=== PATIENT | male | born 1990 | race African-American/Black ===

== ENCOUNTER 2019-10-17 07:27 | Emergency (ER) | payer OTHER, MEDICAID ==
[~2019-10-17] VITALS: Ht 182.9 cm; Wt 111.4 kg
[2019-10-17 07:35] VITALS: BP 127/85
[2019-10-17 09:02] LABS: BILIRUBIN,URINE NEGATIVE (NEG); CLARITY,URINE CLEAR; COLOR,URINE YELLOW; NITRITE,URINE NEGATIVE (NEG); PROTEIN,URINE NEGATIVE (NEG-TRACE); UROBILINOGEN,URINE 0.2 mg/dL (0.2 mg/dL)
[2019-10-17 09:09] LABS: RBC,URINE 0 /HPF (0-2); WBC,URINE 20-40 /HPF (0-4)
[2019-10-17 09:10] LABS: BACTERIA,URINE FEW /HPF (0-FEW)
[2019-10-17] MEDS ORDERED: AZITHROMYCIN 250 MG TABLET. PO ONE (09:30)
[2019-10-17] MEDS ORDERED: cefTRIAXone IM 250 MG VIAL IM ONE (09:30)
--- NOTE | 2019-10-17 09:42 | PHYS DOC ---
Past Medical History Past Medical History: Asthma, Bronchitis Additional Past Medical Histor: Sickle cell trait Past Surgical History: No Surgical History Smoking Status: Current Every Day Smoker Alcohol Use: Rarely Drug Use: Marijuana General Adult EDM: Chief Complaint: GROIN PAIN HPI: HPI: 28-year-old male who denies any significant past medical history presents the ED with complaints of a swollen penis for the past 2 to 3 days, " I think it is my swole veins messing up." Last unprotected intercourse was 1 week ago. Reports associated white urethral discharge, dysuria and increased urinary frequency for the past 2 days. No history of prior STI or blood-borne infection. No h/o prior similar sxs. Review of systems: Denies associated fever, chills, cough, sore throat, chest pain, dyspnea, nausea, vomiting, diarrhea, flank pain, hematuria, myalgias, genital rash or redness, abdominal or back pain. Current Medications: Current Medications Medications (Trade) Dose Ordered Sig/Kori Start Time Stop Time Status Last Admin Dose Admin Azithromycin (Zithromax) 1,000 mg 1X ONCE 10/17/19 09:30 8 09:31 DC Ceftriaxone Sodium (Rocephin Im) 250 mg 1X ONCE 10/17/19 09:30 8 09:31 DC Allergies: Allergies: Allergies Coded Allergies Type Severity Reaction Last Updated Verified No Known Drug Allergies 05/30/15 No Physical Exam: PE: Constitutional: Well developed, well nourished, no acute distress, non-toxic appearance. [] HENT: Normocephalic, atraumatic, bilateral external ears normal, oropharynx moist, nose normal. [] Eyes: PERRLA, EOMI, conjunctiva normal, no discharge. [] Neck: Normal range of motion, no tenderness, supple, no stridor. [] Cardiovascular:Heart rate regular rhythm, no murmur [] Lungs & Thorax: Bilateral breath sounds clear to auscultation [] Abdomen: Bowel sounds normal, soft, no tenderness, no masses, no pulsatile masses. [] Skin: Warm, dry, no erythema, no rash. [] Back: No tenderness, no CVA tenderness. [] Extremities: No tenderness, no cyanosis, no clubbing, ROM intact, no edema. [] Neurologic: Alert and oriented X 3, normal motor function, normal sensory function, no focal deficits noted. [] Psychologic: Affect normal, judgement normal, mood normal. [] PELVIC: Chaperoned by RN, yellow urethral discharge expressed, no testicular swelling or tenderness, no rash, circumcised, no ulcers, swelling over distal shaft of penis not involving the glans, no erythema or increased warmth Current Patient Data: Labs: Laboratory Tests Test 10/17/19 08:25 Urine Collection Type Unknown Urine Color Yellow Urine Clarity Clear Urine pH 6.0 (<5.0-8.0) Urine Specific [employer] <=1.005 (1.000-1.030) Urine Protein Negative mg/dL (NEG-TRACE) Urine Glucose (UA) Negative mg/dL (NEG) Urine Ketones (Stick) Negative mg/dL (NEG) Urine Blood Trace (NEG) Urine Nitrite Negative (NEG) Urine Bilirubin Negative (NEG) Urine Urobilinogen Dipstick 0.2 mg/dL (0.2 mg/dL) Urine Leukocyte Esterase Large (NEG) Urine RBC 0 /HPF (0-2) Urine WBC 20-40 /HPF (0-4) Urine Bacteria Few /HPF (0-FEW) Vital Signs: Vital Signs Date Time Temp Pulse Resp B/P (MAP) Pulse Ox O2 Delivery O2 Flow Rate FiO2 10/17/19 07:35 97.4 62 14 127/85 (99) 98 Room Air 97.4 EKG: EKG: [] Radiology/Procedures: Radiology/Procedures: IMAGING REPORT Signed PATIENT: VALARIE PAT ACCOUNT: [id number] : 1990 LOCATION: ER AGE: 28 SEX: M EXAM STATUS: REG ER ORD. PHYSICIAN: NANCY ROMERO DO REASON: genital swelling PROCEDURE: TESTICULAR/SCROTUM EXAM: SCROTAL SONOGRAM WITH DOPPLER. HISTORY: Scrotal/penile swelling. COMPARISON: None. FINDINGS: Grayscale and Doppler analysis of the scrotum and contents was performed. The right testicle measures 4.7 x 2.5 x 2.5 cm. The parenchyma is homogeneous without focal lesions. The epididymis appears normal. Internal flow is normal. There is a small hydrocele. The left testicle measures 4.5 x 3.0 x 2.7 cm. The parenchyma is homogeneous without focal lesions. The epididymis appears normal. Internal flow is normal. There is a small hydrocele. At the penile site of concern, sonographic images reveal skin thickening. There is no underlying collection or other sonographic abnormality. IMPRESSION: 1. The penile site of swelling reveals only mild skin thickening sonographically. No clear underlying abnormality is appreciated. Ongoing clinical follow-up/management is recommended. Electronically signed by: Jacinda Brian MD (10/17/2019 10:42 AM) [id number] DICTATED and SIGNED BY: SHERRI BRIAN MD DATE: 10/17/19 104 Course & Med Decision Making: Course & Med Decision Making Pertinent Labs and Imaging studies reviewed. (See chart for details) I had seen/evaluated patient and performed a physical exam. Informed pt I was concerned for sexually transmitted disease/complicated UTI and was ruling out any scrotal abscess. Patient was made aware he would be treated for chlamydia and gonorrhea and that we were awaiting ultrasound, UA results and trichomonas results to determine further abx and outpt followup. RN went to give patient his medications and obtain a wet prep for trichomonas and patient was nowhere to be found. Patient did not notify any medical staff that he was leaving. I attempted twice to reach pt on [phone], unsuccessful, number has been disconnected. This patient has left emergency department waiting room with no communication to myself, nursing or administrative staff. There was no opportunity to discuss the patient's decision to leave, provide medical advice or discuss alternatives to leaving. The staff has made efforts to locate the patient without success. Patient has medical decision-making capacity and was not medically cleared from life or limb threatening conditions. Dragon Disclaimer: Dragon Disclaimer: This electronic medical record was generated, in whole or in part, using a voice recognition dictation system. Departure Departure Impression: Primary Impression: Complicated urinary tract infection Additional Impression: Urethral discharge in male Disposition: 07 AGAINST MEDICAL ADVICE (Pt eloped from ED without notifying medical staff) Referrals: NO PCP (PCP) Justicifation of Admission Dx: Justifications for Admission: Justification of Admission Dx: N/A NANCY ROMERO DO Oct 17, 2019 09:42
--- NOTE | 2019-10-17 10:45 | RAD ---
EXAM: SCROTAL SONOGRAM WITH DOPPLER. HISTORY: Scrotal/penile swelling. COMPARISON: None. FINDINGS: Grayscale and Doppler analysis of the scrotum and contents was performed. The right testicle measures 4.7 x 2.5 x 2.5 cm. The parenchyma is homogeneous without focal lesions. The epididymis appears normal. Internal flow is normal. There is a small hydrocele. The left testicle measures 4.5 x 3.0 x 2.7 cm. The parenchyma is homogeneous without focal lesions. The epididymis appears normal. Internal flow is normal. There is a small hydrocele. At the penile site of concern, sonographic images reveal skin thickening. There is no underlying collection or other sonographic abnormality. IMPRESSION: 1. The penile site of swelling reveals only mild skin thickening sonographically. No clear underlying abnormality is appreciated. Ongoing clinical follow-up/management is recommended. Electronically signed by: Jacinda Brian MD (10/17/2019 10:42 AM) [id number]
== END 2019-10-17 09:25 | disposition left against medical advice (07) ==
LOC: ER 07:27
DX: N39.0 Urinary tract infection, site not specified (principal); R36.9 Urethral discharge, unspecified; R30.0 Dysuria; R60.0 Localized edema; J45.909 Unspecified asthma, uncomplicated; F17.200 Nicotine dependence, unspecified, uncomplicated; F12.90 Cannabis use, unspecified, uncomplicated
CPT/HCPCS: 76870; 81001; 87086; 87491; 87591; 99284

== ENCOUNTER 2020-11-07 19:07 | Emergency (ER) | payer OTHER, MEDICAID ==
[~2020-11-07] VITALS: Ht 185.4 cm; Wt 113.6 kg
[2020-11-07] MEDS ORDERED: IV NORMAL SALINE 1000ML BAG 1,000 ML IV ONE (20:00)
[2020-11-07 20:07] LABS: BASO % 0 % (0-3); EOS # 0.1 x10^3/uL (0.0-0.7); EOS % 2 % (0-3); HEMATOCRIT 45.6 % (39.0-53.0); HEMOGLOBIN 16.1 g/dL (13.0-17.5); LYMPH # 1.7 x10^3/uL (1.0-4.8); LYMPH % 44 % (24-48); MEAN CORPUSCULAR HEMOGLOBIN 28 pg (25-35); MEAN CORPUSCULAR HGB CONC 35 g/dL (31-37); MEAN CORPUSCULAR VOLUME 80 fL (79-100); MONO # 0.7 x10^3/uL (0.0-1.1); MONO % 17 % (0-9); NEUT # 1.5 x10^3/uL (1.8-7.7); NEUT % 37 % (31-73); PLATELET COUNT 177 x10^3/uL (140-400); RED BLOOD COUNT 5.71 x10^6/uL (4.30-5.70)
[2020-11-07 20:14] VITALS: BP 127/78
[2020-11-07 20:15] LABS: CALCIUM 9.3 mg/dL (8.5-10.1); CREATININE 1.4 mg/dL (0.7-1.3); POTASSIUM 3.5 mmol/L (3.5-5.1)
--- NOTE | 2020-11-07 20:15 | PHYS DOC ---
Past Medical History Past Medical History: Asthma, Bronchitis Additional Past Medical Histor: Sickle cell trait Past Surgical History: No Surgical History Smoking Status: Current Every Day Smoker Alcohol Use: Occasionally Drug Use: Marijuana General Adult EDM: Chief Complaint: CHEST PAIN HPI: HPI: 29-year-old male presents to the emergency department with various complaints including chest pain, abdominal pain, body aches, cough, shortness of breath and fatigue for the last 3 days. He reports that his symptoms are present for approximately 1 month but worse over the last 3 days. He denies any palliative or provoking factors to his symptoms which he states are intermittent. The patient denies nausea, vomiting, fever, chills, urinary symptoms, recent trauma, or any other complaints. Review of Systems: Review of Systems: ROS is otherwise negative except for what was mentioned in HPI Heart Score: C/O Chest Pain: Yes HEART Score for Chest Pain: HEART Score for Chest Pain Response (Comments) Value History Slighlty/Non-Suspicious 0 ECG Normal 0 Age < 45 0 Risk Factors No Risk Factors 0 Troponin < Normal Limit 0 Total 0 Current Medications: Current Medications Medications (Trade) Dose Ordered Sig/Kori Start Time Stop Time Status Last Admin Dose Admin Ketorolac Tromethamine (Toradol 15mg Vial) 15 mg 1X ONCE 11/07/20 20:30 11/07/20 20:31 11/07/20 20:12 15 MG Sodium Chloride 1,000 ml @ 1,000 mls/hr 1X ONCE 11/07/20 20:00 11/07/20 20:59 11/07/20 20:12 1,000 MLS/HR Allergies: Allergies: Allergies Coded Allergies Type Severity Reaction Last Updated Verified No Known Drug Allergies 05/30/15 No Physical Exam: PE: Constitutional: No acute distress, non-toxic appearance. HENT: Atraumatic, bilateral external ears normal, nose normal. Eyes: PERRLA, EOMI, conjunctiva normal, no discharge. Neck: Normal range of motion, supple, no stridor. Cardiovascular: Heart rate regular rhythm. 2+ radial pulses Lungs & Thorax: No respiratory distress, symmetrical expansion. Bilateral breath sounds clear to auscultation Abdomen: Soft, no tenderness Skin: Warm, dry. Extremities: No tenderness, no cyanosis, ROM intact, no edema. Neurologic: Alert and oriented X 3, normal motor function, normal sensory function, no focal deficits noted. Non ataxic gait. GCS 15. Psychologic: Affect normal, judgment normal, mood normal. Current Patient Data: Labs: Laboratory Tests Test 11/07/20 19:24 White Blood Count 4.0 x10^3/uL (4.0-11.0) Red Blood Count 5.71 x10^6/uL (4.30-5.70) Hemoglobin 16.1 g/dL (13.0-17.5) Hematocrit 45.6 % (39.0-53.0) Mean Corpuscular Volume 80 fL (79-100) Mean Corpuscular Hemoglobin 28 pg (25-35) Mean Corpuscular Hemoglobin Concent 35 g/dL (31-37) Red Cell Distribution Width 14.0 % (11.5-14.5) Platelet Count 177 x10^3/uL (140-400) Neutrophils (%) (Auto) 37 % (31-73) Lymphocytes (%) (Auto) 44 % (24-48) Monocytes (%) (Auto) 17 % (0-9) Eosinophils (%) (Auto) 2 % (0-3) Basophils (%) (Auto) 0 % (0-3) Neutrophils # (Auto) 1.5 x10^3/uL (1.8-7.7) Lymphocytes # (Auto) 1.7 x10^3/uL (1.0-4.8) Monocytes # (Auto) 0.7 x10^3/uL (0.0-1.1) Eosinophils # (Auto) 0.1 x10^3/uL (0.0-0.7) Basophils # (Auto) 0.0 x10^3/uL (0.0-0.2) Sodium Level 137 mmol/L (136-145) Potassium Level 3.5 mmol/L (3.5-5.1) Chloride Level 97 mmol/L (98-107) Carbon Dioxide Level 27 mmol/L (21-32) Anion Gap 13 (6-14) Blood Urea Nitrogen 9 mg/dL (8-26) Creatinine 1.4 mg/dL (0.7-1.3) Estimated GFR (Cockcroft-Gault) 73.0 BUN/Creatinine Ratio 6 (6-20) Glucose Level 86 mg/dL (70-99) Calcium Level 9.3 mg/dL (8.5-10.1) Total Bilirubin 0.7 mg/dL (0.2-1.0) Aspartate Amino Transf (AST/SGOT) 45 U/L (15-37) Alanine Aminotransferase (ALT/SGPT) 48 U/L (16-63) Alkaline Phosphatase 99 U/L (46-116) Troponin I Quantitative 0.045 ng/mL (0.000-0.055) ZN-Xyt-A-Type Natriuretic Peptide 9 pg/mL (0-124) Total Protein 8.4 g/dL (6.4-8.2) Albumin 4.5 g/dL (3.4-5.0) Albumin/Globulin Ratio 1.2 (1.0-1.7) Lipase 104 U/L (73-393) My Orders - DUSTIN ACEVEDO DO Procedure Category Date Status Time Oxygen Delivery SUE 11/07/20 Complete Cbc W Autod[facility] LAB 11/07/20 Complete 19:59 Lipase LAB 11/07/20 Complete 19:59 Portable Chest 1v RAD 11/07/20 Taken 19:59 Nt-Pro Bnp LAB 11/07/20 Complete 19:59 Troponini LAB 11/07/20 Complete 19:59 12 Lead Ekg EKG 11/07/20 Logged 19:59 12 Lead Ekg EKG 11/07/20 Logged 20:29 Comprehensive LAB 11/07/20 Complete Metabolic Panel 19:59 Sars Cov2 ([place]) LAB 11/07/20 In Process 19:59 Sars Antigen Sandra Rapid LAB 11/07/20 In Process 19:59 Influenza A&B Rapid LAB 11/07/20 In Process 19:59 Iv Normal Saline PHA 11/07/20 Complete 1000ml Bag (Iv Sodium 20:00 Ketorolac 15mg Vial PHA 11/07/20 Complete (Toradol 15mg Vial) 20:30 Vital Signs: Vital Signs Date Time Temp Pulse Resp B/P (MAP) Pulse Ox O2 Delivery O2 Flow Rate FiO2 11/07/20 19:40 64 22 132/78 (96) 98 Room Air 11/07/20 19:10 98.2 98.2 EKG: EKG: Normal sinus rhythm, no ST-T wave changes, no ectopic beats, normal axis, normal PA, QRS, and QTc intervals. Impression: Normal EKG. interpreted by me, Dustin Acevedo D.O. Radiology/Procedures: Radiology/Procedures: No airspace disease, infiltrates or consolidations, lung molina clear. No pneumothorax or pleural effusion. Cardiac silhouette within normal limits. No widening of mediastinum. No obvious free air seen. Impression: normal CXR. In terpreted by me, Dustin Acevedo D.O. Course & Med Decision Making: Course & Med Decision Making 2104: Notified by nurse that patient wishes to leave against medical advice (AMA). Patient acknowledged the risks and agreed to take full responsibility to nurse. I was not made aware that the patient about the emergency department until after he left. pt was A&Ox4 and had full medical decision making capacity when they signed the AMA sheet. Departure Departure Impression: Primary Impression: Chest pain Disposition: LEFT AGAINST MEDICAL ADVICE Condition: GOOD Referrals: NO PCP (PCP) DUSTIN ACEVEDO DO Nov 07, 2020 20:15
[2020-11-07 20:23] LABS: ALBUMIN 4.5 g/dL (3.4-5.0); ALBUMIN/GLOBULIN RATIO 1.2 (1.0-1.7); TOTAL BILIRUBIN 0.7 mg/dL (0.2-1.0); TOTAL PROTEIN 8.4 g/dL (6.4-8.2)
[2020-11-07] MEDS ORDERED: KETOROLAC 15 MG/ML VIAL. IVP ONE (20:30)
[2020-11-07 21:16] LABS: INFLUENZA A PATIENT NEGATIVE (NEGATIVE); INFLUENZA B PATIENT NEGATIVE (NEGATIVE)
--- NOTE | 2020-11-07 21:32 | RAD ---
Exam: Chest one view INDICATION: Chest pain TECHNIQUE: Frontal view of the chest Comparisons: None FINDINGS: The cardiomediastinal silhouette and pulmonary vessels are within normal limits. The lung and pleural spaces are clear. IMPRESSION: No acute cardiopulmonary process. Electronically signed by: Shmuel Zarate MD (11/07/2020 9:30 PM) CORNEL
--- NOTE | 2020-11-08 02:13 | EKG ---
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
== END 2020-11-07 20:45 | disposition left against medical advice (07) ==
LOC: ER 19:07
DX: U07.1 COVID-19 (principal); R07.89 Other chest pain; R10.9 Unspecified abdominal pain; J45.909 Unspecified asthma, uncomplicated; F17.200 Nicotine dependence, unspecified, uncomplicated
CPT/HCPCS: 36415; 71045; 80053; 83690; 83880; 84484; 85025; 87426; 87804; 93005; 96361; 96374; 99285; J1885; J7030

== ENCOUNTER 2020-11-08 10:33 | Emergency (ER) | payer OTHER, MEDICAID ==
[~2020-11-08] VITALS: Ht 185.4 cm; Wt 113.6 kg
[2020-11-08 10:44] VITALS: BP 129/79
[2020-11-08] MEDS ORDERED: ACETAMINOPHEN 500 MG TABLET PO ONE (11:00)
--- NOTE | 2020-11-08 11:02 | PHYS DOC ---
Past Medical History Past Medical History: Asthma, Bronchitis Additional Past Medical Histor: Sickle cell trait, "behavioral issues" Past Surgical History: No Surgical History Smoking Status: Current Every Day Smoker Alcohol Use: Occasionally Drug Use: Marijuana General Adult EDM: Chief Complaint: SHORTNESS OF BREATH HPI: HPI: Patient is a 29 year old female with history of bronchitis, asthma, behavioral history who is on risperidone who presents with shortness of breath for the past 2 days. Has had some subjective fevers and chills. Has had some nausea but no vomiting. No diarrhea. Has had some substernal chest pain. He was seen here in the ED yesterday and had a work-up left prior to be being seen. Work-up pertinent for: Chest x-ray without acute process. Covid swab positive. Creatinine 1.4. Troponin 0.045 (upper limit normal < 0.054) Review of Systems: Review of Systems: Constitutional: Reports fevers and chills. [] Eyes: Denies change in visual acuity. [] HENT: Denies nasal congestion or sore throat. [] Respiratory: D ports cough and shortness of breath. [] Cardiovascular: Reports chest pain [] GI: Reports nausea. Denies abdominal pain, vomiting, bloody stools or diarrhea. [] : Denies dysuria. [] Musculoskeletal: Denies back pain or joint pain. [] Integument: Denies rash. [] Neurologic: Denies headache, focal weakness or sensory changes. [] Endocrine: Denies polyuria or polydipsia. [] Lymphatic: Denies swollen glands. [] Psychiatric: Denies depression or anxiety. [] Heart Score: C/O Chest Pain: Yes HEART Score for Chest Pain: HEART Score for Chest Pain Response (Comments) Value History Moderately Suspicious 1 ECG Normal 0 Age < 45 0 Risk Factors No Risk Factors 0 Troponin < Normal Limit 0 Total 1 Risk Factors: Risk Factors: DM, Current or recent (<one month) smoker, HTN, HLP, family history of CAD, obesity. Risk Scores: Score 0 - 3: 2.5% MACE over next 6 weeks - Discharge Home Score 4 - 6: 20.3% MACE over next 6 weeks - Admit for Clinical Observation Score 7 - 10: 72.7% MACE over next 6 weeks - Early Invasive Strategies Current Medications: Current Medications Medications (Trade) Dose Ordered Sig/Kori Start Time Stop Time Status Last Admin Dose Admin Acetaminophen (Tylenol) 1,000 mg 1X ONCE 11/08/20 11:00 11/08/20 11:01 Allergies: Allergies: Allergies Coded Allergies Type Severity Reaction Last Updated Verified No Known Drug Allergies 05/30/15 No Physical Exam: PE: Constitutional: Obese, no apparent distress. Laying prone on bed. [] HENT: Normocephalic, atraumatic, bilateral external ears normal, oropharynx moist, no oral exudates, nose normal. [] Eyes: PERRLA, EOMI, conjunctiva normal, no discharge. [] Neck: Normal range of motion, no tenderness, supple, no stridor. [] Cardiovascular:Heart rate regular rhythm, no murmur [] Lungs & Thorax: Bilateral breath sounds clear to auscultation [] Skin: Warm, dry, no erythema, no rash. [] Back: No tenderness, no CVA tenderness. [] Extremities: No tenderness, no cyanosis, no clubbing, ROM intact, no edema. [] Neurologic: Alert and oriented X 3, normal motor function, normal sensory function, no focal deficits noted. [] Psychologic: Affect normal, judgement normal, mood normal. [] Current Patient Data: Vital Signs: Vital Signs Date Time Temp Pulse Resp B/P (MAP) Pulse Ox O2 Delivery O2 Flow Rate FiO2 11/08/20 10:44 98.2 77 18 129/79 (96) 98 Room Air 98.2 EKG: EKG: Sinus rhythm with some sinus arrhythmia. No acute ischemic changes. Normal intervals. [] Radiology/Procedures: Radiology/Procedures: [] Course & Med Decision Making: Course & Med Decision Making Pertinent Labs and Imaging studies reviewed. (See chart for details) Patient is 29-year-old male with history of asthma, bronchitis, behavioral issues on risperidone who presents with 2 days of cough, shortness of breath, fever/chills and was found to be Covid positive yesterday at an ED visit. He left prior to being seen, but work-up was pertinent for a negative chest x- ray, mild RAFAEL to 1.4, and troponin 0.045 (still below cutoff for ischemia). He presents today with ongoing shortness of breath and chest pain. We will recheck a BMP, troponin, and EKG. ---- EKG nonischemic. Troponin undetectable today. Creatinine stable at 1.4. He was given a liter of IV fluids here, and is taking p.o. Feel he is safe for discharge with PCP follow-up. I discussed isolation precautions with him. Marry Disclaimer: Marry Disclaimer: This electronic medical record was generated, in whole or in part, using a voice recognition dictation system. Departure Departure Impression: Primary Impression: COVID-19 Disposition: HOME / SELF CARE / HOMELESS Condition: STABLE Referrals: NO PCP (PCP) Additional Instructions: You have COVID-19. This is a viral illness that takes time to recover on its own. There are no specific treatments for it at this time. If you develop worsening shortness of breath please return to the emergency department for reevaluation. Please self isolate until you are at least 10 days from symptom onset (11/16 at the earliest) and have at least 3 days without fever and with improving symptoms. This is a highly contagious disease and can spread to others easily. Please respect others health and observe the full isolation period. If you do have to seek medical attention please let the medical providers know immediately that you have tested positive for Covid. Please consider getting the vaccination after you recover from this illness. If you do not have a PCP, please call the number for the [facility] at [phone]. SHERRI DAWSON MD Nov 08, 2020 11:02
[2020-11-08] MEDS ORDERED: IV NORMAL SALINE 1000ML BAG 1,000 ML IV ONE (11:15)
[2020-11-08 11:31] LABS: CREATININE 1.4 mg/dL (0.7-1.3); POTASSIUM 3.9 mmol/L (3.5-5.1)
--- NOTE | 2020-11-08 18:49 | EKG ---
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
== END 2020-11-08 12:16 | disposition home or self-care (01) ==
LOC: ER 10:33
DX: U07.1 COVID-19 (principal); J45.909 Unspecified asthma, uncomplicated; F17.200 Nicotine dependence, unspecified, uncomplicated
CPT/HCPCS: 36415; 80048; 84484; 93005; 96360; 99284; J7030

== ENCOUNTER 2020-11-10 19:02 | Emergency (ER) | payer OTHER, MEDICAID ==
[~2020-11-10] VITALS: Ht 185.4 cm; Wt 133.6 kg
[2020-11-10 19:40] VITALS: BP 136/82
--- NOTE | 2020-11-10 23:47 | PHYS DOC ---
Past Medical History Past Medical History: Asthma, Bronchitis Additional Past Medical Histor: Sickle cell trait, "behavioral issues" Past Surgical History: No Surgical History Smoking Status: Current Every Day Smoker Alcohol Use: None Drug Use: Marijuana General Adult EDM: Chief Complaint: MULTIPLE COMPLAINTS HPI: HPI: Patient is a 29 year old male past medical history of bipolar schizophrenia recent diagnosis of COVID-19 presents with a chief complaint of shortness of breath nausea and sensation of tongue swelling. Patient did have 2 episodes of vomiting in the emergency department. His oxygen saturation within normal limits on room air. On exam I see no tongue swelling. Patient is able to handle his oral secretions without issue. Patient provided food and drink without issues with swallowing. Patient was observed Review of Systems: Review of Systems: Review of systems: Constitutional symptoms- No fever, no chills. Eyes- No Discharge, No Visual Loss Respiratory symptoms- Positive shortness of breath, No wheezing, No Dyspnea on Exertion Cardiovascular Systems; denies chest pain, No Palpitations, No syncope Gastrointestinal symptoms: NO abdominal pain, Positive nausea, Positive vomiting NO diarrhea. Genitourinary symptoms: No dysuria. Musculoskeletal symptoms: No back pain No extremity pain. NEUROLOGICAL Symptoms: No headache, no generalized weakness; No focal Weakness Skin: No rash. Heart Score: C/O Chest Pain: N/A Risk Factors: Risk Factors: DM, Current or recent (<one month) smoker, HTN, HLP, family history of CAD, obesity. Risk Scores: Score 0 - 3: 2.5% MACE over next 6 weeks - Discharge Home Score 4 - 6: 20.3% MACE over next 6 weeks - Admit for Clinical Observation Score 7 - 10: 72.7% MACE over next 6 weeks - Early Invasive Strategies Allergies: Allergies: Allergies Coded Allergies Type Severity Reaction Last Updated Verified No Known Drug Allergies 05/30/15 No Physical Exam: PE: General: alert, no acute distress. Skin: warm, dry and intact, no erythema, no rash. HENT: bilateral external ears normal, oropharynx moist, nose normal. Head:: Normocephalic, atraumatic. Neck: Trachea midline. Eyes: EOMI, Normal conjunctiva, No drainage CARDIOVASCULAR: Regular rate and rhythm RESPIRATORY: No respiratory distress Back: Full range of motion. MUSCULOSKELETAL: Full range of motion of bilateral upper and lower extremities. GASTROINTESTINAL: Abdomen soft without rebound or guarding. NEUROLOGICAL: Alert and noted to person, place and time. No neurological deficits observed Psychiatric: Cooperative. Current Patient Data: Vital Signs: Vital Signs Date Time Temp Pulse Resp B/P (MAP) Pulse Ox O2 Delivery O2 Flow Rate FiO2 11/10/20 19:40 82 22 136/82 (100) 99 Room Air 11/10/20 19:05 98.9 98.9 EKG: EKG: [] Radiology/Procedures: Radiology/Procedures: [] Course & Med Decision Making: Course & Med Decision Making Pertinent Labs and Imaging studies reviewed. (See chart for details) [] Patient was evaluated for chief complaint. Based on exam no emergent lab or radiologic imaging ordered. Patient was treated with Zofran. He was observed vital signs stable no repeat episodes of emesis oxygen saturation within normal limits saw no signs of airway compromise. Patient was discharged home care of family. Dragon Disclaimer: Dragon Disclaimer: This electronic medical record was generated, in whole or in part, using a voice recognition dictation system. Departure Departure Impression: Primary Impression: Viral syndrome Disposition: HOME / SELF CARE / HOMELESS Condition: STABLE Referrals: NO PCP (PCP) Patient Instructions: Viral Syndrome Additional Instructions: You have been tested for or diagnosed with COVID-19. It is an infection caused by a new type of coronavirus. COVID-19 will cause cold-like or mild flu symptoms in most. It can cause more severe symptoms like problems breathing in some. There is no treatment for COVID-19. The body will clear the infection over time. Self-care will help to ease discomfort. Steps to Take: Self-Care Rest as needed. Healthy habits may help you feel better. Steps include: Choose healthy foods including fruits and vegetables. Drink water throughout the day. Get plenty of sleep each night. If you smoke, try to quit. It may ease breathing. Avoid alcohol. Keep Others Healthy The virus can spread to others. Droplets are released every time you sneeze or cough. The droplets can get into the mouth, nose, or eyes of people near you and lead to infection. To lower the chances of spreading COVID-19 to others: Stay at home until your doctor has said it is safe to leave. If you tested positive this will mean staying isolated until both of the following are true: At least 7 days have passed since the start of illness. You are free of fever for at least 72 hours without the use of medicine. During this time: - Avoid public areas, events, or transportation. Do not return to work or school until your doctor has said it is safe to do so. - Call ahead if you need to go to a medical center. Let them know you may have COVID-19. It will help them guide you where to go. They may also ask you to wear a facemask when you come to the office. - If you call for emergency medical services, let them know you may have COVID- 19. While at home: - Try to avoid close contact with others. Stay about 6 feet away. - If possible, spend most of your time in a separate room from others. - Use a face mask if you will be in close contact with others such as sharing a room or vehicle. - Have someone wipe down common surfaces in the home. Use household residential manager every day on areas like doorknobs, counters, or sinks. - Cough or sneeze into a tissue. Throw the tissue away right after use. If a tissue is not available, cough or sneeze into your elbow. - Wash your hands often. Wash them after sneezing or coughing. Use soap and water and wash for at least 20 seconds. Alcohol based hand glass mould cleaner can be used if soap and water is not available. - Do not prepare food for others. Avoid sharing personal items like forks, spoons, or toothbrushes. - Avoid close contact with pets while you are sick. There is no evidence of the virus passing to pets. This is a safety step until more is known about this virus. Isolation can be frustrating. Social interaction can help. Keep in touch with friends and family through phone and tech options. You can still interact with others in your home, just keep a safe distance of about 6 feet. Follow-up: Your doctors office will check in with you to see if there are any changes in your health. You may be asked to keep track of symptoms to share with them. They will also let you know when you are clear to be in public again. Problems to Look Out For: Contact your doctor if your recovery is not going as you expect. Get emergency care if you have problems such as: - Trouble breathing - Nonstop chest pain or pressure - Changes in awareness, confusion, or problems waking - Lips or face have bluish color - Worsening of symptoms If you think you have an emergency, call for emergency medical services right away. As taken from [facility] TRAN SCHNEIDER I DO Nov 10, 2020 23:47
== END 2020-11-11 | disposition home or self-care (01) ==
LOC: ER 19:02
DX: R06.02 Shortness of breath (principal); R11.2 Nausea with vomiting, unspecified; K14.8 Other diseases of tongue; F31.9 Bipolar disorder, unspecified; F20.9 Schizophrenia, unspecified; J45.909 Unspecified asthma, uncomplicated; F17.200 Nicotine dependence, unspecified, uncomplicated
CPT/HCPCS: 99284